=== PATIENT | female | born 1960 | race Caucasian/White ===

== ENCOUNTER 2020-02-10 11:41 | Outpatient (CLI) | payer OTHER, SELFPAY ==
--- NOTE | 2020-02-10 11:46 | MM_ITS ---
WS: [id number] Exam: [place] [id number] Date/Time of Exam: 02/10/2020 11:51 AM Reason For Exam: SCREENING VIEWS: MLO and CC views both breasts. Comparison made with prior exam of 11/25/2016. Findings: There was no sign of mass, architectural distortion or suspicious calcification in either breast. Sc attered fibroglandular densities MM/[place] [id number] Impression: BI-RADS: 2-Benign FOLLOW-UP: 1 Year Follow-up This mammogram was also analyzed by the Computer Aided Detection System R2 Imag [employer].
== END 2020-02-10 11:42 | disposition home or self-care (01) ==
LOC: RADSHAW 11:44
PROVIDERS: PCP Electrodiagnostic Medicine; Visit Provider Nurse Practitioner Women's Health
DX: Z12.31 Encounter for screening mammogram for malignant neoplasm of breast (principal)
CPT/HCPCS: 77067

== ENCOUNTER 2020-08-13 07:28 | Outpatient (RCR) | payer OTHER, SELFPAY | END 2020-08-20 23:59 | disposition home or self-care (01) | LOC: SOT 07:28 | PROVIDERS: PCP Electrodiagnostic Medicine; Referring Provider Orthopaedic Surgery; Visit Provider Orthopaedic Surgery | DX: S62.631D Displaced fracture of distal phalanx of left index finger, subsequent encounter for fracture with routine healing (principal); X58.XXXD Exposure to other specified factors, subsequent encounter | CPT/HCPCS: 97110; 97165 ==

== ENCOUNTER 2020-08-21 06:00 | Outpatient (RCR) | payer OTHER, SELFPAY | END 2020-09-19 23:59 | disposition home or self-care (01) | LOC: SOT 06:00 | PROVIDERS: PCP Electrodiagnostic Medicine; Referring Provider Orthopaedic Surgery; Visit Provider Orthopaedic Surgery | DX: S62.631A Displaced fracture of distal phalanx of left index finger, initial encounter for closed fracture (principal); X58.XXXA Exposure to other specified factors, initial encounter | CPT/HCPCS: 97110; 97112 ==

== ENCOUNTER 2020-09-20 06:00 | Outpatient (RCR) | payer OTHER, SELFPAY | END 2020-10-20 23:59 | disposition home or self-care (01) | LOC: SOT 06:00 | PROVIDERS: PCP Electrodiagnostic Medicine; Referring Provider Orthopaedic Surgery; Visit Provider Orthopaedic Surgery | DX: S62.631D Displaced fracture of distal phalanx of left index finger, subsequent encounter for fracture with routine healing (principal); X58.XXXD Exposure to other specified factors, subsequent encounter | CPT/HCPCS: 97110 ==

== ENCOUNTER 2021-02-11 07:54 | Outpatient (CLI) | payer OTHER, SELFPAY ==
--- NOTE | 2021-02-11 08:00 | MM_ITS ---
WS: [id number] BILATERAL DIGITAL SCREENING MAMMOGRAPHY WITH CAD CLINICAL INFORMATION: SCREENING HISTORY: Screening mammogram. No current complaints. COMPARISON: February 10, 2020 TECHNIQUE: Bilateral CC and MLO views. FINDINGS: Scattered fibroglandular densities bilaterally. Punctate and lucent centered calcifications. Biopsy m arker left breast. No suspicious focal mass, asymmetry, calcifications, or architectural distortion. No evidence of malignancy. MM/[place] [id number] IMPRESSION: BI-RADS: 2-Benign FOLLOW UP: 1 Year Follow-up Recommend return to annual screening mammography.
== END 2021-02-11 07:55 | disposition home or self-care (01) ==
LOC: RADSHAW 07:57
PROVIDERS: PCP Electrodiagnostic Medicine; Visit Provider Nurse Practitioner Women's Health
DX: Z12.31 Encounter for screening mammogram for malignant neoplasm of breast (principal)
CPT/HCPCS: 77067

== ENCOUNTER → 2021-05-14 15:25 | Outpatient (BNVA) | payer OTHER, SELFPAY | PROVIDERS: PCP Electrodiagnostic Medicine; Referring Provider Electrodiagnostic Medicine; Visit Provider Podiatrist Foot & Ankle Surgery | DX: M79.671 Pain in right foot (principal); M19.071 Primary osteoarthritis, right ankle and foot; M77.31 Calcaneal spur, right foot | CPT/HCPCS: 73630 ==

== ENCOUNTER 2021-12-04 07:08 | Outpatient (CLI) | payer OTHER, SELFPAY ==
--- NOTE | 2021-12-04 13:42 | PFTS_ITS ---
Date of Study:12/04/21 Date of Dictation: MECHANICS: Forced vital capacity (FVC) is normal. Forced expiratory volume in one second (FEV1) is normal. FEV1/FVC is normal. FLOW VOLUME LOOP: Normal. LUNG VOLUMES: Not measured DIFFUSING CAPACITY FOR CARBON MONOXIDE: Not measured. INTERPRETATION: The prebronchodilator spirometry is normal. MTDD
== END 2021-12-04 07:09 | disposition home or self-care (01) ==
LOC: RT 07:09
PROVIDERS: PCP Family Medicine; Visit Provider Family Medicine
DX: R06.02 Shortness of breath (principal)
CPT/HCPCS: 94010

== ENCOUNTER 2021-12-25 08:00 | Outpatient (CLI) | payer OTHER, SELFPAY | END 2021-12-25 08:01 | disposition home or self-care (01) | LOC: SLEEP 12-26 08:00 | PROVIDERS: PCP Family Medicine; Visit Provider Family Medicine | DX: G47.10 Hypersomnia, unspecified (principal) | CPT/HCPCS: G0399 ==

== ENCOUNTER → 2022-02-16 17:25 | Outpatient (BNVA) | payer OTHER, SELFPAY | PROVIDERS: PCP Family Medicine; Visit Provider Registered Nurse Neonatal Intensive Care | DX: R52 Pain, unspecified (principal) | CPT/HCPCS: 87400 ==

== ENCOUNTER 2022-02-26 07:33 | Outpatient (CLI) | payer OTHER, SELFPAY ==
--- NOTE | 2022-02-26 07:41 | MM_ITS ---
WS: [id number] BILATERAL SCREENING DIGITAL TOMOSYNTHESIS MAMMOGRAM WITH CAD HISTORY: SCREENING COMPARISON: 02/10/2020, 02/11/2021, 01/27/2019 and 11/26/2017 Bilateral CC and MLO views with tomosynthesis and synthetic mammography submitted. Computer aided det ection analyzed. Breast composition: There are scattered areas of fibroglandular density. No suspicious masses, microc alcifications or architectural distortion. Long-term stability ovoid mass in the mid RIGHT breast homero sures 17 x 11 mm. This mass has been present on prior studies. Better seen today due to tomosynthesis . Additional benign scattered calcifications. MM/[place] [id number] IMPRESSION: BI-RADS: 2-Benign FOLLOW UP: 1 Year Follow-up
== END 2022-02-26 07:34 | disposition home or self-care (01) ==
PROVIDERS: PCP Family Medicine; Visit Provider Family Medicine
DX: Z12.31 Encounter for screening mammogram for malignant neoplasm of breast (principal); Z01.419 Encounter for gynecological examination (general) (routine) without abnormal findings
CPT/HCPCS: 77063; 77067; 87624

== ENCOUNTER 2022-06-06 15:59 | Outpatient (CLI) | payer OTHER, SELFPAY ==
--- NOTE | 2022-06-06 16:19 | XR_ITS ---
WS: [id number] XR finger RT min 2V [id number] REASON FOR EXAM: Right middle finger pain FINDINGS: Moderate osteoarthritis with joint space narrowing and subchondral sclerosis is seen in the DIP and P IP joints of the right middle finger. No fracture or subluxation noted. No soft tissue abnormality. XR/XR finger RT min 2V [id number] IMPRESSION: No acute bone or joint abnormality. Osteoarthritis.
== END 2022-06-06 16:00 | disposition home or self-care (01) ==
PROVIDERS: PCP Family Medicine; Visit Provider Family Medicine
DX: M19.041 Primary osteoarthritis, right hand (principal)
CPT/HCPCS: 73140

== ENCOUNTER 2023-03-02 06:59 | Outpatient (CLI) | payer OTHER, SELFPAY ==
--- NOTE | 2023-03-02 07:45 | MM_ITS ---
WS: [id number] BILATERAL SCREENING DIGITAL TOMOSYNTHESIS MAMMOGRAM WITH CAD HISTORY: SCREEN COMPARISON: 02/26/2022, 02/11/2021 and 02/10/2020 Bilateral CC and MLO views with tomosynthesis and synthetic mammography submitted. Computer aided det ection analyzed. Breast composition: There are scattered areas of fibroglandular density. No suspicious masses, microc alcifications or architectural distortion. Benign calcifications in each breast. There is an asymmetr y in the superior lateral LEFT breast which has been present since 2020 with no increase in size. IMPRESSION: MM/[place] [id number] BI-RADS: 2-Benign FOLLOW UP: 1 Year Follow-up
== END 2023-03-02 07:00 | disposition home or self-care (01) ==
LOC: RAD 06:59
PROVIDERS: PCP Family Medicine; Visit Provider Nurse Practitioner Women's Health
DX: Z12.31 Encounter for screening mammogram for malignant neoplasm of breast (principal)
CPT/HCPCS: 77063; 77067

== ENCOUNTER → 2023-05-08 07:57 | Outpatient (BNVA) | payer OTHER, SELFPAY | PROVIDERS: PCP Family Medicine; Visit Provider Family Medicine | DX: Z13.1 Encounter for screening for diabetes mellitus (principal); Z13.220 Encounter for screening for lipoid disorders; Z51.81 Encounter for therapeutic drug level monitoring; R25.1 Tremor, unspecified; E55.9 Vitamin D deficiency, unspecified | CPT/HCPCS: 80053; 80061; 82306; 83036; 84439; 84443; 85025 ==

== ENCOUNTER 2023-08-14 07:15 | Day surgery (SDC) | payer OTHER, SELFPAY ==
[2023-08-14] VITALS (8 sets, daily range): BP systolic 103–152; BP diastolic 56–98; PULSE 65–87; RESP 12–18; TEMP 36.6–37.3; O2SAT 92–96
[2023-08-14] MEDS: sodium chloride 0.9% 1,000 ML 30 ML IV (07:45)
[2023-08-14] MEDS: gabapentin 300 mg Capsule PO (07:49)
[2023-08-14] MEDS: CELEcoxib 200 mg Capsule 400 MG PO (07:51)
--- NOTE | 2023-08-14 08:26 | W.PM.OPSUD ---
Surgery/Procedure H&P Update DATE OF PROCEDURE: August 14, 2023 DATE H&P PERFORMED: 08/14/23 H&P UPDATE INFORMATION: I have reviewed H&P completed within last 30 days, I have examined patient prior to procedure, No changes to prior documentation and [place] is [place] [facility] [place] indicated CHANGES TO PREVIOUS DOCUMENTATION: None PREOP DIAGNOSIS: Painful hardware right foot PLANNED PROCEDURE: Operation Date: 08/14/23 08:50 Proposed Procedures p Hardware Removal/Deep hardware removal right foot(Right) - Noah Melissa DPM
--- NOTE | 2023-08-14 08:27 | ANES.PREANE2 ---
Pre-Anesthetic Assessment Height/Weight: Height 1.68 m Weight 95.254 kg Temp Pulse Resp BP Pulse Ox O2 Del Method 99.1 F 87 18 152/98 96 Room Air 08/14/23 07:33 08/14/23 07:33 08/14/23 07:33 08/14/23 07:33 08/14/23 07:33 08/14/23 07:33 Preop Diagnosis: Painful hardware right foot Operation Date: 08/14/23 08:50 Proposed Procedures p Hardware Removal/Deep hardware removal right foot(Right) - Noah Melissa DPM Familial anesthetic complications: None Was Beta Jayden taken within 24 hours: N/A Was Clonidine taken within 24 hours: N/A Last intake: Intake Last Liquid Date 08/13/23 Last Liquid Time 19:30 Last Solid Date 08/13/23 Last Solid Time 18:00 Social No alcohol and No tobacco Exam alert, oriented x 3, clear to auscultation bilaterally and regular rate & rhythm Airway Mallampati: Class I Pulmonary Sleep Apnea CV/HEM Hypertension Anesthetic Plan ASA status: 2 Anesthesia: MAC Risk of > 500 ml blood loss (7ml/kg in children): No Medications/Allergies Home Medications Medication Instructions Recorded Confirmed Last Taken Type albuterol sulfate 90 mcg/actuation 1 puff inhalation QID #8.5 grams 10/17/21 08/13/23 Unknown Rx aerosol inhaler clobetasol 0.05 % topical ointment 1 applic topical DAILY PRN Rash 02/26/22 08/13/23 Unknown History cyclobenzaprine 10 mg tablet 10 mg PO TID PRN muscle spasm #30 01/06/23 08/13/23 Unknown Rx tabs ondansetron 4 mg disintegrating 4 mg PO Q8H PRN nausea and 01/06/23 08/13/23 Unknown Rx tablet vomiting #10 tabs amlodipine 2.5 mg tablet 7.5 mg (3 x 2.5 mg) PO DAILY #90 01/19/23 08/13/23 08/13/23 Rx tabs tretinoin 0.05 % topical cream 1 applic topical Q3D #20 grams 01/20/23 08/13/23 Unknown Rx hydrochlorothiazide 12.5 mg tablet 12.5 mg PO DAILY #90 tabs 12/04/23 05/23/24 05/24/24 Rx propranolol 10 mg tablet 10 mg PO TID #90 tabs 02/23/23 08/13/23 08/14/23 Rx ibuprofen 800 mg tablet 800 mg PO TID PRN pain #90 tabs 03/19/23 08/13/23 08/12/23 Rx albuterol sulfate 2.5 mg/3 mL 2.5 mg (3 mL) inhalation QID PRN 05/01/23 08/13/23 Unknown Rx (0.083 %) solution for nebulization shortness of breath or wheezing #75 mL cholecalciferol (vitamin D3) 50 50 mcg PO DAILY #30 caps 05/18/23 08/13/23 Unknown Rx mcg (2,000 unit) capsule Allergies Allergy/AdvReac Type Severity Reaction Status Date / Time No Known Allergies Allergy Verified 08/14/23 07:34 Current Medications Generic Name Dose Route Start Last Admin Trade Name Freq PRN Reason Stop Dose Admin Sodium Chloride 1,000 mls @ 30 mls/hr 08/14/23 07:45 08/14/23 07:45 Sodium Chloride 0.9% IV 08/15/23 07:44 30 mls/hr .Q24H ALBERTO Administration PFSH Anesthesia Medical History Hyperextension injury of finger of right hand Peripheral edema COVID-19 No pertinent past medical history neghx: dm,thyroid,dvt/pe PCP: David Hypertension Surgical History H/O breast biopsy (~2013) Atypical ductal hyperplasia of the left breast. Hx of section (~1986) Hx of dilation and curettage x4-- she had 3 D&Cs done for miscarriages and one done for postmenopausal bleeding in 2011. Per patient at time of D&C in 2011 no malignancy or hyperplasia was identified. Hx of tubal ligation (~1992) through abdomen Hx of tonsillectomy At age 8 History of bunionectomy Right Family History Sister Thyroid disease Mother Heart disease Hypertension Hypercholesteremia Dementia Denies family history of Colon cancer Ovarian cancer Diabetes Breast cancer Uterine cancer Stroke Data Anesthesia Cardiac Studies: No Data to Display
--- NOTE | 2023-08-14 08:28 | PM.OPSURHP ---
Providers/Chief Complaint Primary Care Provider: Jose Ramon Hernandez MD Chief Complaint: T84.84 History of Present Illness 62 year old female patient presenting to clinic for evaluation of painful callus at right lateral third toe. Patient reports third and fourth toes rubbing causing pain. Review of Systems General: Reports: 10 or more systems reviewed and unremarkable except in HPI and below Const: Denies: fever(s) or chills Eyes: Denies: change in vision Card: Denies: chest pain or palpitations Resp: Denies: dyspnea or productive cough GI: Denies: abdominal pain, nausea or vomiting : Denies: flank pain Musc: Reports: extremity pain, joint pain, joint stiffness, limited range of motion and deformity Skin/Breast: Reports: skin tenderness; Denies: rash Neuro: Reports: difficulty walking; Denies: numbness in extremities, sensory changes or frequent falls Psych: Denies: suicidal ideation Simeon/Lymph: Denies: easy bruising Medications/Allergies Home Medications Medication Instructions Recorded Confirmed Last Taken Type albuterol sulfate 90 mcg/actuation 1 puff inhalation QID #8.5 grams 10/17/21 08/13/23 Unknown Rx aerosol inhaler clobetasol 0.05 % topical ointment 1 applic topical DAILY PRN Rash 02/26/22 08/13/23 Unknown History cyclobenzaprine 10 mg tablet 10 mg PO TID PRN muscle spasm #30 01/06/23 08/13/23 Unknown Rx tabs ondansetron 4 mg disintegrating 4 mg PO Q8H PRN nausea and 01/06/23 08/13/23 Unknown Rx tablet vomiting #10 tabs amlodipine 2.5 mg tablet 7.5 mg (3 x 2.5 mg) PO DAILY #90 01/19/23 08/13/23 08/13/23 Rx tabs tretinoin 0.05 % topical cream 1 applic topical Q3D #20 grams 01/20/23 08/13/23 Unknown Rx hydrochlorothiazide 12.5 mg tablet 12.5 mg PO DAILY #90 tabs 02/23/23 08/13/23 08/14/23 Rx propranolol 10 mg tablet 10 mg PO TID #90 tabs 02/23/23 08/13/23 08/14/23 Rx ibuprofen 800 mg tablet 800 mg PO TID PRN pain #90 tabs 12/08/13/23 08/12/23 Rx albuterol sulfate 2.5 mg/3 mL 2.5 mg (3 mL) inhalation QID PRN 05/01/23 08/13/23 Unknown Rx (0.083 %) solution for nebulization shortness of breath or wheezing #75 mL cholecalciferol (vitamin D3) 50 50 mcg PO DAILY #30 caps 05/18/23 08/13/23 Unknown Rx mcg (2,000 unit) capsule Allergies Allergy/AdvReac Type Severity Reaction Status Date / Time No Known Allergies Allergy Verified 08/14/23 07:34 PFSH PFSH: Medical History Hyperextension injury of finger of right hand Peripheral edema COVID-19 No pertinent past medical history neghx: dm,thyroid,dvt/pe PCP: David Hypertension Surgical History H/O breast biopsy (~2013) Atypical ductal hyperplasia of the left breast. Hx of section (~1986) Hx of dilation and curettage x4-- she had 3 D&Cs done for miscarriages and one done for postmenopausal bleeding in 2011. Per patient at time of D&C in 2011 no malignancy or hyperplasia was identified. Hx of tubal ligation (~1992) through abdomen Hx of tonsillectomy At age 8 History of bunionectomy Right Family History Sister Thyroid disease Mother Heart disease Hypertension Hypercholesteremia Dementia Denies family history of Colon cancer Ovarian cancer Diabetes Breast cancer Uterine cancer Stroke Vital Signs Vitals Signs: Last Vital Signs Temp 99.1 F 08/14/23 07:33 Pulse 87 08/14/23 07:33 Resp 18 08/14/23 07:33 BP 152/98 08/14/23 07:33 Pulse Ox 96 08/14/23 07:33 O2 Del Method Room Air 08/14/23 07:33 Weight: Weight last 48 hrs Weight 210 lb Physical Exam Narrative: EXAM NARRATIVE: GENERAL: Patient is alert and oriented ?3 and in no acute distress. The following is a focused bilateral lower extremity exam. VASCULAR: Dorsalis pedis and posterior tibial arteries palpable +2. Capillary refill time less than 3 seconds to the distal hallux bilaterally. Calf is supple and nontender proximally and distally. No pedal edema appreciated. Pedal hair growth present. NEUROLOGICAL: Epicritic and protopathic sensations grossly intact to the lower extremities. +2 Achilles tendon reflex noted bilaterally. Negative Tinel sign upon percussion of lower extremity nerves. DERMATOLOGICAL: Hyperkeratotic lesion lateral border right third toe without wound, drainage or erythema. MUSCULOSKELETAL: Pain to palpation at hyperkeratotic lesion right third toe. Prominent hardware at the right first metatarsal with tenderness to palpation. Mild tenderness at the right Achilles myotendinous juncture. No palpable dell along the course of the watershed zone. Muscle strength up to 5 in all 3 planes to the bilateral foot and ankle. Joint dorsiflexion 5 degrees beyond neutral. Arthrosis at the tarsometatarsal joints with osteophytes palpable dorsally. CARDIOVASCULAR: S1, S2, normal rate, normal rhythm. Dorsalis pedis and posterior tibial arteries palpable. LUNGS: Clear to auscltation, no use of acessory muscles, no crackles or wheezes. A&P Assessment and plan (1) Painful orthopaedic hardware: (2) Right foot pain: Plan Ms. Cotton is a 62-year-old female presents with complaints of painful hardware that is backing out she has a screw tenting the skin is having complications wearing shoe gear with rubbing against hardware causing pain. Has tried padding and offloading and accommodative shoes without relief. I reviewed at length with the patient, the risks, potential complications, benefits, alternatives, expectations, and typical outcomes associated with the surgery. The risks and potential complications were explained in detail, including but not limited to infection, wound dehiscence or soft tissue complications, bleeding and hematoma, chronic edema, neuritis or nerve damage producing numbness or chronic pain, CRPS, failure to relieve pain or worsening pain, thick / painful / unsightly scar, limited motion / stiffness, malposition, delayed union, malunion, or nonunion, fracture, reaction to implants, anesthetic complications, venous thromboembolism, and deformity recurrence. I discussed the notion of no regrets with the patient as it pertains to complications and outcomes. The patient seemed to understand the nature of the proposed care and required convalescence. They asked appropriate questions, answered to their satisfaction. They are aware no guarantees can be made as to a satisfactory outcome and they understand there may be other possible unforeseen complications or outcomes not listed here that will be treated accordingly if they arise. There were no written or implied guarantees given to the patient. They gave informed consent to proceed. Plan on deep hardware removal right foot, outpatient local MAC anesthesia duration procedure 30 minutes. Coding Level of Care Code Acute Code for [facility] Fwd Diagnoses Painful orthopaedic hardware T84.84XA Right foot pain M79.671
[2023-08-14] MEDS: ceFAZolin 2,000 MG in sodium chloride 0.9% (plus) 50 ML 100 MG IV (08:30)
[2023-08-14] MEDS: BUPivacaine 0.5% INJ 30 mL INJECTION (08:55)
[2023-08-14] MEDS: BUPivacaine liposome 13.3 mg/mL SDV 10 mL 133 MG INFILTRATI (08:55)
--- NOTE | 2023-08-14 09:01 | W.PM.BPON ---
Normal alignment of date of Procedure: 06/05/23 Surgeon: Noah Melissa DPM Infantry Weapons Crewmember(s): Charla Procedure(s) performed: Deep hardware removal right foot Findings of the procedure(s): 1 screw was broke this was prior to hard removal at today's visit. Estimated blood loss: Less than 2 mL Specimen(s) removed: 3 entire screws, half of the screw and 1 plate Post-operative diagnosis: Painful hardware right foot No anesthesia or surgical complications
--- NOTE | 2023-08-14 10:20 | ANE.PACU2 ---
Inpatient post-anesthesia follow up: Airway intact: Yes Vital signs: Temperature 98.2 F Pulse Rate 68 Respiratory Rate 18 Blood Pressure 116/68 Pulse Oximetry 94 Oxygen Delivery Me thod Room Air Oxygen Flow Rate 6 Fraction of Inspir ed Oxygen Hydration adequate: Yes Nausea and vomiting: No Pain level: 1 Mental status: Baseline
--- NOTE | 2023-08-14 11:46 | PM.OP ---
Operative Report Date of procedure: August 14, 2023 Pre-op diagnosis: Painful hardware, right foot. Post-op diagnosis: Painful hardware, right foot. Post-op findings: Failed hardware right foot Procedure done: Deep hardware removal right foot. CPT code 88115 Implants: 3-0 Vicryl, 4-0 Vicryl, 4-0 nylon Specimens removed/disposition: 4 screws 1 plate. Of note 1 screw had failed at the shank and only partial extraction was performed of the head and proximal shape. Pathology: None Surgeon: Noah Melissa DPM Biological Technical Officer: See intraoperative documentation Estimated blood loss: 2 mL see intraoperative documentation IV fluids: See intraoperative documentation Urine output: None Complications: No complications Brief History: Patient is a pleasant 63-year-old female with prominent painful hardware at the right foot feels that the screw is backing out and makes it difficult to wear any type of shoe gear, has tried padding and spacing and accommodative shoes continues to have irritation would like to have it removed. I reviewed at length with the patient, the risks, potential complications, benefits, alternatives, expectations, and typical outcomes associated with the surgery. The risks and potential complications were explained in detail, including but not limited to infection, wound dehiscence or soft tissue complications, bleeding and hematoma, chronic edema, neuritis or nerve damage producing numbness or chronic pain, CRPS, failure to relieve pain or worsening pain, thick / painful / unsightly scar, limited motion / stiffness, malposition, delayed union, malunion, or nonunion, fracture, reaction to implants, anesthetic complications, venous thromboembolism, and deformity recurrence. I discussed the notion of no regrets with the patient as it pertains to complications and outcomes. The patient seemed to understand the nature of the proposed care and required convalescence. They asked appropriate questions, answered to their satisfaction. They are aware no guarantees can be made as to a satisfactory outcome and they understand there may be other possible unforeseen complications or outcomes not listed here that will be treated accordingly if they arise. There were no written or implied guarantees given to the patient. They gave informed consent to proceed. Procedure: Under mild sedation the patient was brought to the operating room and remained on the gurney in supine position. Timeout was performed. Anesthesia was then administered by the anesthesia service. Local anesthesia was injected by myself. Well-padded pneumatic tourniquet was applied to the right ankle. Right lower extremity was scrubbed, prepped and draped utilizing normal aseptic technique. Right foot then exanguinated with Esmarch bandage and tourniquet inflated to 250 mmHg. Attention was directed to the medial aspect of right forefoot where directly over hardware which was palpable and tenting the skin a incision was made through skin with a #15 blade with dissection carried down to hardware. 1 screw was prominent and palpable which was tenting the skin, remaining screws were down to bone with plate. 1 screw head failure at the shank and was partially extracted with the proximal shank and head passing operative field and remaining 3 screws removed in total and passed from operative field followed by the plate pass from operative field. All rough edges were smoothed at the level of the bone and the incision was irrigated with copious amounts of sterile skin solution. Incision was closed in a layered fashion with periosteum and deep tissue reapproximated with 3-0 Vicryl, subcutaneous tissue with 4-0 Vicryl and skin with 4-0 nylon. Incision was dressed with Adaptic, sterile 4 x 4's, Kerlix and Ra wrap. Postop shoe was applied to the right foot. Tourniquet was deflated and a prompt hyperemic response is noted to the distal digits of the right foot. Patient tolerated the procedure and anesthesia well and was transferred to the PACU with vital signs stable vascular status intact. Following a period of postoperative monitoring she will be discharged home without home care instructions and scheduled follow-up.
== END 2023-08-14 10:19 | disposition home or self-care (01) ==
PROVIDERS: PCP Family Medicine; Visit Provider Podiatrist Foot & Ankle Surgery
PROC: (CPT 20680; principal; 2023-08-14 08:40)
DX: T84.84XA Pain due to internal orthopedic prosthetic devices, implants and grafts, initial encounter (principal); I10 Essential (primary) hypertension; G47.30 Sleep apnea, unspecified; Y82.9 Unspecified medical devices associated with adverse incidents
CPT/HCPCS: 20680; C9290; J0690; J2704; J3010; J3490; J7030

== ENCOUNTER → 2023-11-10 08:41 | Outpatient (BNVA) | payer OTHER, SELFPAY | PROVIDERS: PCP Family Medicine; Referring Provider Family Medicine; Visit Provider Psychiatry & Neurology Neurology | DX: R25.1 Tremor, unspecified (principal) | CPT/HCPCS: 36415; 82607; 82746; 83090; 83735; 83921 ==

== ENCOUNTER 2023-12-16 07:06 | Outpatient (CLI) | payer OTHER, SELFPAY ==
--- NOTE | 2023-12-16 07:15 | MR_ITS ---
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 COMPARISON: None available. TECHNIQUE: Multiplanar imaging performed through the brain with MultiHance 20 ml's IV. No acute infarcts are seen. Ratliff-white matter differentiation is well preserved. Mild small vessel di sease. There is only a few scattered T2 and FLAIR signal hyperintensities greater on the LEFT. Normal hippocampal formations. No susceptibility artifacts or prior lacunar infarcts. Ventricles and extra-axial spaces are normal. Clivus and pituitary gland are normal. Visualized posterior fossa and brainstem are also normal. Postcontrast images are negative for masses or vascular malformations. Dural venous sinuses are normal. Paranasal sinuses: Well aerated with no significant disease. Mastoid air cells: Normal. Calvarium and scalp: Normal. MR/MR head wo/w con [id number] IMPRESSION: 1. No acute infarct or hemorrhage. 2. Very minimal small vessel disease, greatest on the LEFT. 3. No enhancing mass. No volume loss.
[2023-12-16] MEDS: gadobenate dimeglumine 20 mL vial IV (07:40)
== END 2023-12-16 07:07 | disposition home or self-care (01) ==
LOC: RAD 07:06
PROVIDERS: PCP Family Medicine; Visit Provider Psychiatry & Neurology Neurology
DX: H02.5 Other disorders affecting eyelid function (principal); R25.1 Tremor, unspecified
CPT/HCPCS: 36415; 70553; 82607; 82746; 83090; 83735; 83921

== ENCOUNTER 2024-03-07 07:46 | Outpatient (CLI) | payer OTHER, SELFPAY ==
--- NOTE | 2024-03-07 07:49 | MM_ITS ---
WS: [id number] BILATERAL SCREENING DIGITAL TOMOSYNTHESIS MAMMOGRAM WITH CAD HISTORY: SCREENING COMPARISON: 03/02/2023, 02/26/2022, 02/10/2020 Bilateral CC and MLO views with tomosynthesis and synthetic mammography submitted. Computer aided det ection analyzed. Breast composition: There are scattered areas of fibroglandular density. No suspicious masses, microc alcifications or architectural distortion. Numerous benign scattered calcifications. MM/MM scr tomosynthesis [id number] IMPRESSION: BI-RADS: 2 - Benign. FOLLOW UP: 1 Year Follow-up
== END 2024-03-07 07:47 | disposition home or self-care (01) ==
PROVIDERS: PCP Family Medicine; Visit Provider Nurse Practitioner Women's Health
DX: Z12.31 Encounter for screening mammogram for malignant neoplasm of breast (principal); R92.323 Mammographic fibroglandular density, bilateral breasts; R92.1 Mammographic calcification found on diagnostic imaging of breast
CPT/HCPCS: 77063; 77067

== ENCOUNTER → 2024-07-12 14:15 | Outpatient (BNVA) | payer OTHER, SELFPAY | PROVIDERS: PCP Family Medicine; Visit Provider Psychiatry & Neurology Neurology | DX: G25.0 Essential tremor (principal); E55.9 Vitamin D deficiency, unspecified | CPT/HCPCS: 36415; 82306; 83540; 83735; 84443 ==

== ENCOUNTER 2024-08-03 06:59 | Outpatient (CLI) | payer OTHER, SELFPAY ==
--- NOTE | 2024-08-03 07:15 | MR_ITS ---
WS: [id number] MRI CERVICAL SPINE NONCONTRAST TECHNIQUE: Sagittal T1, T2 and STIR imaging. Axial T2, gradient, and fiesta imaging. CLINICAL INFORMATION: G24.3 - Spasmodic torticollis COMPARISON: None. FINDINGS: Straightening of the normal cervical lordosis. Slight anterolisthesis C4 on C5. No abnormal gadolinium enhancement. Cord signal is normal. No suspicious lesions in the cervical cord. C2-C3: Mild LEFT and no RIGHT foraminal narrowing. Mild facet arthropathy. C3-C4: Mild facet arthropathy. Mild LEFT and no significant RIGHT foraminal narrowing. C4-C5: Slight anterolisthesis. Moderate facet arthropathy. Spinal canal is patent. Mild LEFT foraminal narrowing. C5-C6: Slight anterolisthesis. Mild facet arthropathy. Mild LEFT and no significant RIGHT foraminal narrowing. C6-C7: Disc osteophyte complex with endplate ridging. Mild facet arthropathy. Mild LEFT and no significant RIGHT foraminal narrowing. Spinal canal is patent. C7-T1: Slight anterolisthesis. Spinal canal and foramina are patent. Visualized brain stem structures: Normal. Prevertebral soft tissues: Normal. MR/MR cervical spine wo/w [id number] IMPRESSION: 1. No suspicious lesions in the cervical cord. No enhancing lesions. 2. Mild spondylitic changes described above. 3. Slight anterolisthesis C4 on C5, C5 on C6, C6 on C7, and C7 on T1. 4. LEFT C4-5 facet synovitis with a small amount of enhancement and edema like ly inflammatory or degenerative. 5. Mild LEFT C4-5 foraminal narrowing.
[2024-08-03] MEDS: gadobenate dimeglumine 20 mL vial IV (07:52)
== END 2024-08-03 07:00 | disposition home or self-care (01) ==
PROVIDERS: PCP Family Medicine; Visit Provider Psychiatry & Neurology Neurology
DX: G24.3 Spasmodic torticollis (principal); M47.892 Other spondylosis, cervical region; M65.88 Other synovitis and tenosynovitis, other site; M48.02 Spinal stenosis, cervical region; R93.7 Abnormal findings on diagnostic imaging of other parts of musculoskeletal system; M25.78 Osteophyte, vertebrae
CPT/HCPCS: 72156

== ENCOUNTER 2024-10-07 06:37 | Outpatient (CLI) | payer OTHER, SELFPAY ==
--- NOTE | 2024-10-07 | ECG_ITS ---
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 Interpretive Statements LEXISCAN SESTAMIBI STRESS TEST Procedure: At the baseline, the blood pressure was 150/85 mmHg with a heart rate of 77 bpm. The electrocardiogram showed normal sinus rhythm, normal axis with normal ST and T's. The Lexiscan was infused over a period of 20 seconds. A total of 0.4 mg of Lexiscan was infused. The stress phase was continued for a total of 5 minutes. Heart rate was at the end of stress phase was 90 bpm and a blood pressure of 147/66 mmHg. The EKG at the peak infusion revealed normal sinus rhythm with no significant ST-T wave changes. Sestamibi was injected 20 seconds after the Lexiscan infusion. Blood pressure at the end of recovery phase was 149/69 mmHg with a heart rate of 85 bpm. Conclusion: 1. Normal EKG response to Lexiscan infusion 2. No Lexiscan induced chest pain or cardiac arrhythmia. 3. Normal blood pressure and heart rate response. 4. Sestamibi/sestamibi perfusion scan pending; see separate report. Electronically Signed On 10-17-2024 11:58:28 CDT by Carson Candelario M.D. [email or web address]
[2024-10-07 06:45] VITALS: BMI 36.3
--- NOTE | 2024-10-07 06:49 | NMCV_ITS ---
NM yolanda perf SPECT r/s* [id number] Cher Cotton Age: 64 Gender: F : 1960 Exam Date: 10/07/2024 07:48 Ordering Phys: Jose Ramon Hernandez MD Technologist: TRENA Cummins Exam Location: [facility] Indications: cp STRESS TEST Please see separate stress test report in [facility] for full findings IMAGE PROTOCOL Rest/Stress 1 Lexiscan Day Radiopharmaceutical Dose (mCi) Administration Site Administered by Rest: Tc-99m 10.7 IV Palak Olmedo, FOOD PHOTOGRAPHER Sestamibi Stress:Tc-99m 32.5 IV Palak Olmedo, FOOD PHOTOGRAPHER Sestamibi Rest: 07-Oct-2024 60 Discovery 630 Stress: 07-Oct-2024 30 Discovery 630 0.4mg Lexiscan. Images obtained in supine and prone position. SPECT RESULTS Technical Quality: Good Raw Data Analysis: Normal Image Corrections: No attenuation or motion correction applied Summed Stress Score: 2 Summed Rest Score: 0 Summed Difference Score: 2 PERFUSION FINDINGS There is a small sized area of mild intensity reversible perfusion defect seen in the inferolateral wall. This is consistent with a small area of ischemia in left circumflex artery territory. FUNCTIONAL RESULTS (calculated via Gated SPECT) Stress Image LV EF (%): 89 Stress EDV (mL):89 TID: 0.98 Stress ESV (mL):10 FUNCTIONAL FINDINGS: There is normal left ventricular systolic function. IMPRESSIONS 1. Small area of ischemia seen in the left circumflex artery territory. 2. LV systolic function is normal Carson Candelario MD (Electronically Signed) Final Date: 07 October 2024 11:15 S
[2024-10-07 08:38] VITALS: BP 149/86; PULSE 78
== END 2024-10-07 06:38 | disposition home or self-care (01) ==
LOC: CDL 06:39
PROVIDERS: PCP Family Medicine; Visit Provider Family Medicine
DX: R07.9 Chest pain, unspecified (principal); R93.1 Abnormal findings on diagnostic imaging of heart and coronary circulation
CPT/HCPCS: 36415; 78452; 93017; 96374; A9500; J2785

== ENCOUNTER → 2024-10-24 15:26 | Outpatient (BNVA) | payer OTHER, SELFPAY | PROVIDERS: PCP Family Medicine; Referring Provider Family Medicine; Visit Provider Internal Medicine Cardiovascular Disease | DX: R07.9 Chest pain, unspecified (principal); R06.02 Shortness of breath; R58 Hemorrhage, not elsewhere classified; R94.39 Abnormal result of other cardiovascular function study | CPT/HCPCS: 36415; 80048; 85025; 85610; 93005 ==

== ENCOUNTER 2024-11-07 07:21 | Outpatient (CLI) | payer OTHER, SELFPAY ==
[2024-11-07] VITALS (16 sets, daily range): BP systolic 118–177; BP diastolic 69–90; PULSE 66–90; RESP 16–97; TEMP 36.9; O2SAT 96–98; BMI 36.3
--- NOTE | 2024-11-07 07:30 | XACV_ITS ---
Ht: 168 cm Wt: 102 kg BSA: 2.22 m2 Gender: Female : 1960 Any Known Allergies: No known allergies Exam Priority: Routine Indication(s): - Abnormal nuclear perfusion test Procedure(s): Procedure Description: Diagnostic procedure Procedure Description: PCI procedure Procedure Description: Left Heart Catheterization Procedure Description: Left ventriculography Procedure Description: Drug Eluting Coronary Stent Procedure Description: PTCA Procedure Description: Miscellaneous Procedure Description: ACT Procedure Description: Coronary Angiography Procedure Description: Pressure Wire Juan RIVAS; Diagnostic Cath Status: Elective Diagnostic Findings * Left Main has no disease. * Right Coronary Artery has no disease. * Mid Left Anterior Descending: minimal 30% stenosis, ABIGAIL: 3 flow. * Mid Circumflex: significant 80% stenosis, ABIGAIL: 3 flow. * 1st Diagonal: minimal 30% stenosis, ABIGAIL: 3 flow. * First Obtuse Marginal Branch Segment: luminal irregularities 20% stenosis, ABIGAIL: 3 flow. * Coronary angiography shows right dominance. Interventional Findings * Mid Circumflex: 80% stenosis treated with a AB MINI TREK 2.00X20 RX BALLOON, MAURICE Hanson LIZET 3.0X26 PARAM, and MAURICE MYERS EUPHORA RX [id number] BALLOON. 0% residual stenosis, ABIGAIL: 3 flow. Conclusions 1. There is significant coronary artery disease with two vessel disease. 2. All flores are normal. 3. Normal left ventricular systolic function. Ejection fraction of 65%. 4. Mid Circumflex was treated with a Balloon, Drug Eluting Stent, and Balloon. Recommendations * 1-Return to inpatient for close monitoring and routine cath care 2-Risk factor modification for secondary prevention 3-Statin and aspirin 81 mg life-long, if tolerated 4-Patient was pre-loaded with 600 mg of Plavix, continue Plavix 75mg p.o. daily for at least one year. We will assess at the end of one year again to continue if further or not 5-Continue optimal medical management 6-Follow up with Dr. Martinez in four weeks and your primary care in 10 days. Diagnostic RX Recommendation: PCI w/o planned CABG LV EDP: 25 mmHg Ventriculography Ejection Fraction: 65.0 % Pressures Phase:Rest AO : 147 / 83 ( 110 ) @ 10:24:00 AM 153 / 83 ( 115 ) @ 10:37:00 AM 124 / 69 ( 93 ) @ 10:41:00 AM 157 / 84 ( 117 ) @ 11:02:00 AM 157 / 83 ( 117 ) @ 11:02:00 AM LV : 153 / 2 / 25 @ 11:01:00 AM 107 / 34 / 32 @ 11:02:00 AM 149 / 0 / 24 @ 11:02:00 AM 155 / 0 / 25 @ 11:02:00 AM Valves Phase:DefaultPhase AV : 0.0 @ 10:10:23 AM 0.0 @ 10:10:23 AM AV Mean Gradient: 0.0 @ 10:10:23 AM Clinical Evaluation EBL: 5mL-10mL Procedural Details Procedure Consent Obtained. Admit Source: Out Patient. Pre-Procedure Time Out. Identified patient by full name and date of as verbalized by the patient/guarantor. Does the consent match the physician's order: Yes. Accurate & Complete Informed Consent: Yes. Inpatient/Outpatient History & Physical on Chart: Yes. If H&P is completed, is and addenduem needed: No; If yes, is the addendum complete: N/A. Visualize and Verify Site with Patient/Guarantor: N/A. Relevant Radiology Images available: N/A. The risks, benefits, and alternatives of sedation and/or procedure were discussed by physician. The patient agrees to continue. Procedure started. [facility] Clinical Fraility Score: 3: Managing Well. 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 Chest Pain Symptom Assessment: Typical Angina Symptoms. Cardiovascular Instability: No. Physician arrived. Correct patient, site and procedure confirmed by cath team. Current diagnosis: Chest Pain; Abnormal Stress Test. PERRLA. Strong, equal hand sealer operator bilaterally. Lungs clear x 5 lobes. IV Site on Arrival: 20 gauge in the right anticubital. IV Fluids: 0.9% NaCl at KVO. 0 mL infused prior to ear mold laboratory technician. Pre Procedural Pulses: bilateral posterior tibial was 1+. Pre Procedural Pulses: bilateral dorsalis pedis was 1+. Pre Procedural Pulses: bilateral radial was 3+. Oxygen started at 3liters/min via nasal canula. right groin was prepped with chloroprep then draped in the usual sterile fashion. right radial was prepped with chloroprep then draped in the usual sterile fashion. Physician notified. Baseline sample Acquired. HR: 68 BPM. Family updated by MD prior to the start of the procedure. Physician scrubbed in. Immediate Pre-Procedure Time Out. Correct Patient: Yes; Correct Procedure: Yes; Correct Site: Yes; Correct Patient Position: Yes; Correct Supplies: Yes; Dried Flammable Prep: Yes; Blood Products Available: N/A;. Lidocaine 1% infiltrated to the right radial. Arterial access obtained. A 5 british Christiano catheter in over wire. Multiple views taken of right coronary artery. Catheter redirected to the LCA. Multiple views taken of left coronary artery. Catheter removed over the exchange wire. 6 british XB 3.5 guide catheter was inserted over the wire. ACT drawn. Results 200 seconds. Therapeutic limits - pre-heparin administration 90-150 seconds and monitoring heparin during a vascular procedure >250 seconds. Family updated by staff. Unable to seat guide. Removed over the exchange wire. 6 british XB 3 guide catheter was inserted over the wire. Guide seated in the LCS. Runthrough guidewire was advanced through the guide catheter to lesion in the mid Circ. Guidewire advanced across lesion. Inflation number : 1 A AB MINI TREK 2.00X20 RX BALLOON was prepped and advanced across the Mid CX , then inflated to 14 REBEKA for 0:15 seconds. Inflation number: 2 The AB MINI TREK 2.00X20 RX BALLOON was reinflated across the Mid CX, to 14 REBEKA for 0:12 seconds. Balloon out. Results checked. Inflation Number : 3 A MDT R LIZET 3.0X26 PARAM -Lot Number# [id number] EXP 06/20/27 was prepped and advanced across the Mid CX. The stent was deployed at 12 REBEKA for 0:15 seconds. Stent balloon out over wire. Results checked. Inflation number : 4 A MDT NC EUPHORA RX [id number] BALLOON was prepped and advanced across the Mid CX , then inflated to 10 REBEKA for 0:15 seconds. Inflation number: 5 The MDT NC EUPHORA RX [id number] BALLOON was reinflated across the Mid CX, to 10 REBEKA for 0:17 seconds. Inflation number: 6 The MDT NC EUPHORA RX 3.86L59LA BALLOON was reinflated across the Mid CX, to 10 REBEKA for 0:19 seconds. Balloon out. Results checked. Wire out. Guide catheter out over wire. ACT drawn. Results 382 seconds. Therapeutic limits - pre-heparin administration 90-150 seconds and monitoring heparin during a vascular procedure >250 seconds. A 5 british Angled Pig catheter in over wire. EDP Sample taken: LV 153/2,25; HR: 68 BPM; SpO2: Off%. LV gram performed in HENLEY @ 10 mL/second for a total of 30 mL. Patient EF: Normal. EDP Sample taken: LV 107/34,32; HR: 67 BPM; SpO2: 96%. EDP Sample taken: LV 149/0,24; HR: 69 BPM; SpO2: 97%. Pullback taken: LV 155/0,25; AO 157/84(117); Mean: 0mmHg, Peak to Peak: 0mmHg, SEP: 7sec/min; HR: 71 BPM; SpO2: 96%. [id number]. Total IV fluids: 80 mL. Catheter removed over the wire. Physician review of films then scrubbed out. A TR Band was successful obtaining hemostatsis at the Right Radial artery insertion site. TR band placed. Hemostasis obtained. Post Procedure: Pulses reassessed and unchanged. PERRLA. Strong, equal hand sealer operator bilaterally. No VTE prophylaxis required. Medication's Wasted: Lidocaine 1% = 18ml , Nitro = 49.8 mg , Heparin = 2000 units. Fluoro: 11:01. Contrast type used: Visipaque 320 mgI/mL, 200 mL bottle. Post-op diagnosis: Mid circumflex lesion; status post 1 drug eluting stent. Complications: None. Estimated blood loss: 5mL-10mL. Responsiveness - Normal response to verbal stimuli; alert and oriented, PERRLA. Airway - Unaffected, no intervention required; spontaneous ventilation. Circulation: W/N/L, pulses unchanged. Nausea/Vomiting: No. Procedure completed. Patient transferred by wheelchair to CPRU. Vital chart was stopped. Access Site Site: Right Radial artery Sheath Size: 6 Fr Hemostasis Method: TR Band Hemostasis Success: Successful Procedure Medications Start: 9:04 AM Stop: 9:04 AM Medication: Versed Amount: 1 mg Route: I.V. Start: 9:04 AM Stop: 9:04 AM Medication: Fentanyl Amount: 50 mcg Route: I.V. Start: 9:21 AM Stop: 9:21 AM Medication: Nitrogylcerin Amount: 200 mcg Route: I.A. Start: 9:21 AM Stop: 9:21 AM Medication: Heparin Amount: 5000 units Route: I.V. Start: 9:32 AM Stop: 9:32 AM Medication: Versed Amount: 1 mg Route: I.V. Start: 9:40 AM Stop: 9:40 AM Medication: Heparin Amount: 4000 units Route: I.V. Start: 9:42 AM Stop: 9:42 AM Medication: Fentanyl Amount: 25 mcg Route: I.V. Start: 9:51 AM Stop: 9:51 AM Medication: Fentanyl Amount: 25 mcg Route: I.V. Start: 10:04 AM Stop: 10:04 AM Medication: Plavix Amount: 600 mg Route: P.O. I, the attending physician, have reviewed and verified all procedure medications. Yes, all medications given per verbal order History/Risk Factors Hypertension: Yes Dyslipidemia: No Peripheral Arterial Disease (PAD): No Myocardial Infarction (MO): No Obesity: Yes Renal Disease: No Tobacco Use: Never Prior Interventions PCI: No CABG: No Valve Surgery: No Report Signatures Finalized by Prema Martinez MD on 11/07/2024 10:31 AM
--- NOTE | 2024-11-07 09:04 | W.PM.OPSUD ---
Surgery/Procedure H&P Update DATE OF PROCEDURE: November 07, 2024 DATE H&P PERFORMED: 10/24/24 H&P UPDATE INFORMATION: I have reviewed H&P completed within last 30 days, I have examined patient prior to procedure and No changes to prior documentation PREOP DIAGNOSIS: Chest pain/unexplained shortness of breath/abnormal stress test PRIMARY INDICATION FOR PROCEDURE: 64-year female with unexplained shortness of breath recurrent chest pressure squeeze tightness underwent stress test, Dr. Corona thought that it is cardiac related she referred patient for left heart catheterization since patient continues to have recurrent symptoms. PLANNED PROCEDURE: Operation Date: 11/07/24 08:30 Proposed Procedures p Cardiac Catheterization - LHC w/w/o LV and Coros(Left) - Prema Martinez MD PATIENT REASSESSED PRIOR TO SEDATION, WITH NO CHANGE NOTED: Yes PHYSICAL EXAM: alert, oriented x 3, clear to auscultation bilaterally, regular rate & rhythm and operative site marked AIRWAY EVAL/ANESTHESIA PLAN: ASA II, Risks, benefits & alternatives of sedation and/or procedure discussed and Patient agrees to continue as planned ADDITIONAL INFORMATION: Patient has been explained all risk-benefit and alternative for the procedure, patient is sub-2% risk of stroke major bleed. Patient does have 5% risk of minor bleeding bruising infection hematoma vascular and CT surgery. Patient would like to proceed with it after understanding.
--- NOTE | 2024-11-07 10:15 | PC.NURSE ---
Received the patient back from the sugar laboratory assistant via wheelchair s/p PCI of the mid CX. Patient ambulated to the cot without difficulty. A & 0 x 3. telemetry monitor placed and vital signs obtained. TR band intact to the right wrist. No bleeding or hematoma noted. Palpable radial pulse. No other assessment changes noted from pre cath assessment. Spouse at bedside. No concerns voiced at this time.
--- NOTE | 2024-11-07 11:45 | PC.NURSE ---
Letting the air out of the TR band per protocol. No other assessment changes noted at this time.
--- NOTE | 2024-11-07 12:45 | PC.NURSE ---
TR band off per protocol. Site cleansed with warm water and patted dry. A large band aid was applied to the site and loosely secured with coban. No bleeding or hematoma noted. Palpable radial pulse. Post radial activity instruction verbally given to the patient with her understanding verbalized. No other assessment changes noted at this time.
--- NOTE | 2024-11-07 14:04 | PC.NURSE ---
Patient discharged home via wheelchair with spouse.
== END 2024-11-07 07:22 | disposition home or self-care (01) ==
PROVIDERS: PCP Family Medicine; Visit Provider Internal Medicine Cardiovascular Disease
DX: I25.10 Atherosclerotic heart disease of native coronary artery without angina pectoris (principal); I10 Essential (primary) hypertension; E66.9 Obesity, unspecified; Z68.36 Body mass index [BMI] 36.0-36.9, adult; I70.90 Unspecified atherosclerosis; Z82.49 Family history of ischemic heart disease and other diseases of the circulatory system; R01.1 Cardiac murmur, unspecified
CPT/HCPCS: 36415; 85347; 93458; 99152; 99153; C1725; C1769; C1874; C1887; C1894; C9600; J1644; J2250; J3010; J3490; J7030; J9999; Q0163; Q9967

== ENCOUNTER 2024-11-23 05:59 | Outpatient (CLI) | payer OTHER, SELFPAY ==
--- NOTE | 2024-11-23 06:15 | USCV_ITS ---
Cher Cotton Age: 64 Gender: F : 1960 Exam Date: 11/23/2024 06:25 Ordering Phys: Josué Corona MD ([email or web address]) Technologist: [place] [facility] [place]: cp sob BP: 120 / 70 HR: 104 Rhythm: Sinus Technical Quality: Adequate MEASUREMENTS (Male / Female) Normal Values 2D ECHO LV Diastolic Diameter PLAX 3.8 cm 4.2 - 5.9 / 3.9 - 5.3 cm IVS Diastolic Thickness 1.2 cm 0.6 - 1.0 / 0.6 - 0.9 cm IVS Systolic Thickness 1.8 cm LVPW Diastolic Thickness 1.1 cm 0.6 - 1.0 / 0.6 - 0.9 cm LVPW Systolic Thickness 1.3 cm LVOT Diameter 2.0 cm LV Ejection Fraction 2D Teich 63.6 % LV Ejection Fraction MOD 4C 64.8 % LV Ejection Fraction MOD 2C 57.6 % LV Ejection Fraction 2C AL 57.7 % LA Diameter 3.6 cm RA Systolic Volume 4C AL 29.3 ml RA Systolic Volume 4C MOD 28.2 ml LA Sys Volume AL 54.0 cm cubed LA Sys Volume Index AL 25.0 cm cubed/m squared Aorta at Sinotubular Diameter 2.6 cm IVC Diameter 2.3 cm M-MODE LA Ao Ratio MM 1.1 AV Cusp Separation MM 1.9 cm DOPPLER AV Peak Velocity 180.0 cm/s LVOT Peak Velocity 140.0 cm/s AV Area Cont Eq vti 2.4 cm squared AV Area Cont Eq pk 2.5 cm squared MV Peak Velocity 126.0 cm/s MV Area PHT 3.9 cm squared Mitral E to A Ratio 1.0 TR Peak Velocity 261.0 cm/s TR Peak Gradient 27.2 mmHg TV Peak E Velocity 132.0 cm/s PV Peak Velocity 95.0 cm/s FINDINGS Left Ventricle Normal left ventricular size, systolic function and wall thickness, with no regional wall motion abnormalities. Left ventricular ejection fraction is estimated at 60 %. Grade I/IV diastolic dysfunction (abnormal relaxation filling pattern), normal to mildly elevated filling pressures. Right Ventricle The right ventricle is normal in size and function. Right Atrium The right atrium is normal in size. Left Atrium Mildly increased left atrial size. Mitral Valve Moderately thickened mitral valve. Mild mitral annular calcification. No mitral valve stenosis. Mild mitral valve regurgitation. Aortic Valve Mild aortic valve calcification. No aortic valve stenosis. Trace aortic valve regurgitation. Tricuspid Valve Structurally normal tricuspid valve without significant stenosis or regurgitation. Pulmonary artery systolic pressure is normal. Pulmonic Valve Structurally normal pulmonic valve without significant stenosis. There is no pulmonic regurgitation. Pericardium Normal pericardium without effusion. Aorta Normal ascending aorta dimension. IVC The inferior vena cava appears normal. CONCLUSIONS Normal left ventricular size, systolic function and wall thickness, with no regional wall motion abnormalities. Left ventricular ejection fraction is estimated at 60 %. Grade I/IV diastolic dysfunction (abnormal relaxation filling pattern), normal to mildly elevated filling pressures. Moderately thickened mitral valve. Mild mitral annular calcification. No mitral valve stenosis. Mild mitral valve regurgitation. Mild aortic valve calcification. No aortic valve stenosis. Trace aortic valve regurgitation. There is no pericardial effusion. Right atrial pressure is around 5 mm of mercury. Prema Martinez MD (Electronically Signed) Final Date: 27 November 2024 15:28 S
== END 2024-11-23 06:00 | disposition home or self-care (01) ==
LOC: RAD 05:59
PROVIDERS: PCP Family Medicine; Visit Provider Internal Medicine Cardiovascular Disease
DX: R06.02 Shortness of breath (principal); R93.1 Abnormal findings on diagnostic imaging of heart and coronary circulation; I51.7 Cardiomegaly; I34.81 Nonrheumatic mitral (valve) annulus calcification; I34.0 Nonrheumatic mitral (valve) insufficiency; I35.8 Other nonrheumatic aortic valve disorders
CPT/HCPCS: 93306

== ENCOUNTER 2024-11-23 13:14 | Emergency (ER) | payer OTHER, SELFPAY ==
[2024-11-23 13:17] VITALS: BP 145/82; PULSE 74; RESP 16; O2SAT 96
--- NOTE | 2024-11-23 13:19 | ECG_ITS ---
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 Measurements Intervals [place] Rate: 70 P: 36 [place]: 161 QRS: -23 QRSD: 100 T: 28 QT: 379 QTc: 411 Interpretive Statements SINUS RHYTHM LOW QRS VOLTAGE IN PRECORDIAL LEADS [QRS DEFLECTION < 1.0 mV IN CHEST LEADS] INCOMPLETE RIGHT BUNDLE BRANCH BLOCK [90+ ms QRS DURATION, TERMINAL R IN V1/V2, 40+ ms S IN I/aVL/V4/V5/V6] POSSIBLE ANTERIOR MYOCARDIAL INFARCTION , PROBABLY OLD [30 ms Q WAVE IN V3/V4, OR R < 0.2 mV IN V4] Compared to ECG 10/24/2024 15:41:15 Low QRS voltage now present Incomplete right bundle-branch block now present Myocardial infarct finding now present Left-axis deviation no longer present Electronically Signed On 11-23-2024 17:31:24 CDT by Nate Scruggs M.D. [email or web address]
--- NOTE | 2024-11-23 13:20 | XR_ITS ---
WS: [id number] Portable AP upright chest, 11/23/2024 Clinical Data: chest pain Comparison: Two-view chest, 09/16/2018 Findings: No nodules, masses or effusions are seen. The heart is normal. The pulmonary vascularity is not increased. No pneumonia or pneumothorax is seen. The aortic arch and descending thoracic aorta show tortuosity. Monitor leads are on the chest wall. XR/XR chest 1V portable [id number] Impression: Atherosclerosis.
--- NOTE | 2024-11-23 13:35 | CT_ITS ---
WS: [id number] CT CHEST ANGIOGRAPHY WITH REFORMATS HISTORY: shortness of breath TECHNIQUE: Contiguous axial images are obtained through the chest during arterial injection of intravenous contrast. Images are reconstructed to evaluate the pulmonary arteries. MIP imaging also reviewed. All CT scans at [facility] use at least one of these dose optimization techniques: automated exposure control; mA and/or kV adjustment per patient size (includes targeted exams where dose is matched to clinical indication); or iterative reconstruction. CONTRAST: Omnipaque 350; 100 mL IV. DLP: 441.94 mGy.cm COMPARISON: None available. Acute opacification of the pulmonary arteries. No pulmonary embolism identified. Normal size aorta. No RIGHT heart strain. Normal size heart. No mediastinal or hilar adenopathy. There is a small paratracheal lymph node which is not pathologic. Mild hazy attenuation throughout both lungs and mild dependent changes. No consolidation or mass. No pneumothorax. Small hiatal hernia. Cholelithiasis. No adjacent inflammation. Common bile duct does not appear dilated. No destructive bone lesions. CT/CT angio chest PE protcl [id number] IMPRESSION: 1. No pulmonary embolism. 2. No RIGHT heart strain. 3. Very mild hazy attenuation throughout the lungs may be due to to mild edema . No consolidations or pneumonia. 4. Cholelithiasis without acute cholecystitis.
[2024-11-23 13:36] VITALS: BP 141/80; PULSE 75; RESP 18; O2SAT 99
--- NOTE | 2024-11-23 13:36 | W.ED.CHESTPA ---
HPI - Chest Pain General: Chief Complaint: Chest Pain Stated Complaint: chest pain and back pain Time Seen by Provider: 11/23/24 13:15 History of Present Illness: Patient is a 64-year-old female presenting with a chief complaint of shortness of breath. She states that this has been ongoing before she had her cardiac catheterization on November 07, 2024. She believes that the antiplatelet medication she was prescribed may be the cause of her shortness of breath. She states that since yesterday, she has also had pain in her right thoracic back where her bra strap is. She denies fever, cough, hemoptysis or syncope. She has not had any lower extremity swelling. She states that she is feeling increasingly short of breath and lightheaded with exertion. She does not have a history of DVT/PE. On November 07, 2024, patient had a stent placed in the circumflex and had angioplasty to an OM vessel. Related Data Home Medications ?Medication ?Instructions ?Recorded ?Confirmed propranolol 10 mg tablet 10 mg PO BID 10/24/24 11/23/24 aspirin 81 mg tablet 81 mg PO QAM 11/04/24 11/23/24 amlodipine 2.5 mg tablet 7.5 mg PO QPM 11/23/24 11/23/24 cholecalciferol (vitamin D3) 125 125 mcg PO DAILY 11/23/24 11/23/24 mcg (5,000 unit) tablet (Vitamin D3) hydrochlorothiazide 12.5 mg tablet 12.5 mg PO QAM 11/23/24 11/23/24 rosuvastatin 20 mg tablet 20 mg PO DAILY 11/23/24 11/23/24 ticagrelor 90 mg tablet (Brilinta) 90 mg PO BID 11/23/24 11/23/24 Previous Rx's ?Medication ?Instructions ?Recorded ondansetron 4 mg disintegrating 4 mg PO Q8H PRN nausea and 03/10/24 tablet vomiting #10 tabs CPAP #1 ea 08/02/24 CPAP supplies, mask, tubing, etc #1 ea 08/02/24 cyclobenzaprine 10 mg tablet 10 mg PO TID PRN muscle spasm #30 11/09/24 tabs Allergies Allergy/AdvReac Type Severity Reaction Status Date / Time clopidogrel Allergy rash Verified 11/18/24 11:02 prasugrel Allergy Unknown Verified 11/23/24 13:02 PFSH ED PFSH: Medical History (Updated 11/23/24 @ 15:06 by Francesca Villarreal MD) Hyperextension injury of finger of right hand Peripheral edema COVID-19 No pertinent past medical history neghx: dm,thyroid,dvt/pe PCP: [facility] Surgical History (Updated 11/18/24 @ 13:06 by Josué Corona MD) H/O breast biopsy (~2013) Atypical ductal hyperplasia of the left breast. Hx of section (~1986) Hx of dilation and curettage x4-- she had 3 D&Cs done for miscarriages and one done for postmenopausal bleeding in 2011. Per patient at time of D&C in 2011 no malignancy or hyperplasia was identified. Hx of tubal ligation (~1992) through abdomen Hx of tonsillectomy At age 8 History of bunionectomy Right Family History Sister Thyroid disease Mother Heart disease Hypertension Hypercholesteremia Dementia Denies family history of Colon cancer Ovarian cancer Diabetes Breast cancer Uterine cancer Stroke Social History Smoking and tobacco/nicotine status: never used tobacco/nicotine Physical Exam Narrative: EXAM NARRATIVE: Vital signs were reviewed. Patient is alert and oriented. Patient is breathing comfortably, no increased WOB or accessory muscle use. SpO2 is above 95% on RA. Lungs are clear bilaterally, no rhonchi or wheezing noted. No crackles in the bases. No hypotension or tachycardia. Patient has a soft, nondistended nontender abdomen. Patient is moving all extremities, no deformity or gross injury. There is no lower extremity edema or asymmetry. Course Vital Signs: Vital signs: Vital Signs Pulse Rate 66 11/23/24 13:52 Respiratory Rate 16 11/23/24 13:52 Blood Pressure 141/80 11/23/24 13:52 Pulse Oximetry 97 11/23/24 13:52 Oxygen Delivery Me thod Room Air 11/23/24 13:52 MDM - Chest Pain Medical Decision Making 64-year-old female with a significant history for cardiac disease presents with a chief complaint of shortness of breath, now new thoracic back pain, atraumatic. Differential diagnosis includes, but is not limited to, ACS, myocarditis, pericarditis, pneumonia, viral upper respiratory infection, PE, GERD, other. On initial exam, patient is hemodynamically stable nontoxic appearing. EKG was personally reviewed and interpreted and shows normal sinus rhythm with a heart rate of 70, left axis deviation,, mildly prolonged QRS, no prolongation of QTc, no STEMI. Given recent procedure, exertional shortness of breath and lightheadedness, patient was evaluated with CBC, BMP, troponin, BNP, EKG, chest x-ray, UA and CT PE. Patient has a normal white blood cell count and is not anemic. There are no actionable electrolyte abnormalities. Patient has a normal troponin and only very mildly elevated BNP. At this point my concern for heart failure is low. UA is negative for infection. CT PE does not show PE, evidence of right heart strain. Her shortness of breath that is subjective could be due to recent medications however at this time, she is appropriate for further outpatient workup. Patient was counseled on supportive care at home, given return precautions and discharged in a stable condition. Lab Data 11/23/24 13:29 11/23/24 13:29 Radiology Impressions Chest X-Ray 11/23/24 13:20 Impression: Atherosclerosis. Chest CTA 11/23/24 13:35 IMPRESSION: 1. No pulmonary embolism. 2. No RIGHT heart strain. 3. Very mild hazy attenuation throughout the lungs may be due to to mild edema. No consolidations or pneumonia. 4. Cholelithiasis without acute cholecystitis. Laboratory Results WBC 8.44 10^3/uL (3.29-11.43) 11/23/24 13: RBC 4.38 10^6/uL (3.85-5.65) 11/23/24 13:29 Hgb 12.60 g/dL (11.27-16.99) 11/23/24 13:29 Hct 38.7 % (36-47) 11/23/24 13:29 MCV 88.4 fl (85-98) 11/23/24 13:29 MCH 28.8 pg (27-33) 11/23/24 13:29 MCHC 32.6 g/dL (30-55) 11/23/24 13:29 RDW 12.7 % (12.1-15.1) 11/23/24 13:29 Plt Count 298 10^3/cmm (157-399) 11/23/24 13:29 MPV 10.1 fL (7.4-10.4) 11/23/24 13:29 Neut % (Auto) 65.6 % 11/23/24 13:29 Lymph % (Auto) 25.1 % 11/23/24 13:29 [place] % (Auto) 5.0 % 11/23/24 13:29 Eos % (Auto) 3.3 % 11/23/24 13:29 Baso % (Auto) 0.6 % 11/23/24 13:29 Neut # (Auto) 5.54 10^3/uL (1.8-7.7) 11/23/24 13:29 Lymph # (Auto) 2.1 10^3/uL (0.8-4.8) 11/23/24 13:29 [place] # (Auto) 0.4 10^3/uL (0.2-0.9) 11/23/24 13:29 Eos # (Auto) 0.3 10^3/uL (0.0-0.8) 11/23/24 13:29 Baso # (Auto) 0.1 10^3/uL (0.0-0.1) 11/23/24 13:29 Nucleated RBC % (auto) 0 % 11/23/24 13:29 Nucleated RBCs # 0.0 /100WBC 11/23/24 13:29 Sodium 138 mmol/L (136-145) 11/23/24 13:29 Potassium 3.6 mmol/L (3.5-5.1) 11/23/24 13:29 Chloride 101 mmol/L (98-107) 11/23/24 13:29 Carbon Dioxide 22 mmol/L (22-29) 11/23/24 13:29 Anion Gap 18.6 (5-19) 11/23/24 13:29 BUN 17 mg/dL (8-23) 11/23/24 13:29 Creatinine 0.9 mg/dL (0.5-0.9) 11/23/24 13:29 GFR Calculation 63.4 mL/min (90-130) L 11/23/24 13:29 Glucose 164 mg/dL (65-115) H 11/23/24 13:29 Calculated Osmolality 291 mOsm/kg (285-295) 11/23/24 13:29 Calcium 9.2 mg/dL (8.5-10.5) 11/23/24 13:29 Total Bilirubin 0.3 mg/dL (0.15-1.2) 11/23/24 13:29 AST 19 U/L (0-32) 11/23/24 13:29 ALT 14 U/L (0-33) 11/23/24 13:29 Alkaline Phosphatase 94 U/L (35-105) 11/23/24 13:29 Troponin T Baseline 7 ng/L (0-10) 11/23/24 13:29 NT-Pro-B Natriuret Pep 170 pg/mL (0-125) H 11/23/24 13:29 Total Protein 7.4 g/dL (6.6-8.7) 11/23/24 13:29 Albumin 4.4 g/dL (3.5-5.2) 11/23/24 13:29 Globulin 3.0 g/dL (1.3-4.6) 11/23/24 13:29 Urine Color Yellow (Yellow) 11/23/24 14:13 Urine Appearance Clear (CLEAR) 11/23/24 14:13 Urine pH 5.0 (5-7) 11/23/24 14:13 Ur Specific [place] 1.023 (1.005-1.030) 11/23/24 14:13 Urine Protein Negative (Negative) 11/23/24 14:13 Urine Glucose (UA) Negative (Normal) 11/23/24 14:13 Urine Ketones Negative (Negative) 11/23/24 14:13 Urine Blood Negative (Negative) 11/23/24 14:13 Urine Nitrate Negative (Negative) 11/23/24 14:13 Urine Bilirubin Negative (Negative) 11/23/24 14:13 Urine Urobilinogen 1.0 mg/dL (Negative) 11/23/24 14:13 Ur Leukocyte Esterase Negative (Negative) 11/23/24 14:13 Urine RBC 0-2 /hpf (0-2) 11/23/24 14:13 Urine WBC 0-5 /hpf (0-5) 11/23/24 14:13 Ur Squamous Epith Cells 0-5 /hpf (0-5) 11/23/24 14:13 Amorphous Sediment Not Reportable 11/23/24 14:13 Urine Bacteria None seen /hpf (NONE) 11/23/24 14:13 Hyaline Casts 0.81 /lpf 11/23/24 14:13 All radiology interpretation(s) finalized by discharge Discharge Plan Discharge Patient Disposition: Home Clinical Impression: Exertional shortness of breath Condition: Stable Prescriptions: No Action (DME) CPAP See Rx Instructions .Route .MEDSUPPLY Qty: 1 0RF Rx Instructions: As directed - Settings 6-16 cm H2O (DME) CPAP supplies, mask, tubing, etc See Rx Instructions .Route .MEDSUPPLY Qty: 1 0RF Rx Instructions: As directed propranolol 10 mg tablet 10 mg PO BID ondansetron 4 mg tablet,disintegrating 4 mg PO Q8H PRN (Reason: nausea and vomiting) Qty: 10 3RF cyclobenzaprine 10 mg tablet 10 mg PO TID PRN (Reason: muscle spasm) Qty: 30 0RF ticagrelor [Brilinta] 90 mg tablet 90 mg PO BID Patient Comments: due to patient reactions - medication has been changed back to Brillinta rosuvastatin 20 mg tablet 20 mg PO DAILY cholecalciferol (vitamin D3) [Vitamin D3] 125 mcg (5,000 unit) Tablet 125 mcg PO DAILY amlodipine 2.5 mg tablet 7.5 mg PO QPM hydrochlorothiazide 12.5 mg tablet 12.5 mg PO QAM aspirin 81 mg Tablet 81 mg PO QAM Discharge Orders: Discharge ED (Routine); Ordered 11/23/24 Ordered By: Francesca Villarreal Referrals: Jose Ramon Hernandez MD [Primary Care Provider, Family Practice] Patient Instructions: Shortness of Breath (ED), Opioid Safety, Pain Management, Patient Portal & Precious Instructions Activity Restrictions/Additional Instructions: Please continue to monitor your condition closely at home. If your condition worsens or additional concerns arise, please return promptly to the emergency department for reassessment. Follow up with your primary care doctor in one week. Your doctor may further consider evaluation by a assembling machine operator. Additionally, follow-up with your paper roller regarding any medication changes. Print Language: Welsh Coding Level of Care Code ED Cage Unloader for Moustapha Stock
[2024-11-23 13:42] LABS: Hematocrit 38.7 % (36-47); Hemoglobin 12.60 g/dL (11.27-16.99); Mean Corpuscular HGB Conc 32.6 g/dL (30-55); Mean Corpuscular Hemoglobin 28.8 pg (27-33); Mean Corpuscular Volume 88.4 fl (85-98); Nucleated Red Blood Cells % 0 %; Platelet Count 298 10^3/cmm (157-399); Red Blood Count 4.38 10^6/uL (3.85-5.65); White Blood Count 8.44 10^3/uL (3.29-11.43)
[2024-11-23 13:52] VITALS: BP 141/80; PULSE 66; RESP 16; O2SAT 97
[2024-11-23 13:54] LABS: Troponin(5th) Baseline 7 ng/L (0-10)
[2024-11-23 14:26] LABS: Glucose Urine UA Negative (Normal); Nitrate Urine Negative (Negative); Specific Gravity, Urine 1.023 (1.005-1.030)
[2024-11-23 14:28] LABS: Alanine Aminotransferase 14 U/L (0-33); Albumin Level 4.4 g/dL (3.5-5.2); Alkaline Phosphatase 94 U/L (35-105); Aspartate Amino Transferase 19 U/L (0-32); Blood Urea Nitrogen 17 mg/dL (8-23); Calcium 9.2 mg/dL (8.5-10.5); Carbon Dioxide 22 mmol/L (22-29); Chloride 101 mmol/L (98-107); Creatinine Clr Calc Pharmacy 75.9442; Globulin 3.0 g/dL (1.3-4.6); Glucose 164 mg/dL (65-115); NT Pro B Type Natriuretic Pept 170 pg/mL (0-125); Osmolality Calculated 291 mOsm/kg (285-295); Sodium 138 mmol/L (136-145); Total Protein 7.4 g/dL (6.6-8.7)
[2024-11-23 14:30] LABS: Anion Gap 18.6 (5-19); Potassium 3.6 mmol/L (3.5-5.1)
[2024-11-23 14:31] LABS: Add Urine Microscopic? YES
--- NOTE | 2024-11-23 14:42 | PC.PHAR ---
Pt started Plavix, which caused allergic whelps. Med changed to Brillinta which caused shortness of breath. Med changed to Prasugrel 10mg which is caused her to be in ER. Pt will stop Prasugrel and restart Brillinta tomorrow 11/24/24.
[2024-11-23] MEDS: iohexol 350 mg/mL 500 mL Btl (per mL) IV (14:47)
[2024-11-23 15:21] VITALS: BP 129/68; PULSE 67; RESP 16; O2SAT 98
== END 2024-11-23 15:22 | disposition home or self-care (01) ==
PROVIDERS: Emergency Provider Emergency Medicine; PCP Family Medicine
DX: R06.02 Shortness of breath (principal); I10 Essential (primary) hypertension; Z86.16 Personal history of COVID-19
CPT/HCPCS: 71045; 71275; 80053; 81001; 83880; 84484; 85025; 93005; 99285

== ENCOUNTER 2025-03-09 12:46 | Outpatient (CLI) | payer OTHER, SELFPAY ==
--- NOTE | 2025-03-09 12:52 | MM_ITS ---
WS: [id number] BILATERAL SCREENING DIGITAL TOMOSYNTHESIS MAMMOGRAM WITH CAD HISTORY: ANNUAL SCREEN COMPARISON: 03/07/2024, 03/02/2023, 02/09/2021 Bilateral CC and MLO views with tomosynthesis and synthetic mammography submitted. Computer aided detection analyzed. Breast composition: There are scattered areas of fibroglandular density. No suspicious masses, microcalcifications or architectural distortion. 5 mm asymmetry in the superior LEFT breast seen best on the MLO projection has been present since 02/11/2021. There are numerous additional calcifications within each breast. MM/MM scr tomosynthesis [id number] IMPRESSION: BI-RADS: 2 - Benign. FOLLOW UP: 1 Year Follow-up
--- NOTE | 2025-03-09 13:30 | XR_ITS ---
WS: [id number] DEXA (DUAL ENERGY X-RAY ABSORPTIOMETRY) Bone mineral density was performed using a [employer] machine. HISTORY: Z78.0 - Asymptomatic menopausal state COMPARISON: None available. Lumbar spine BMD (L1-L4): 1.058 g/cm2 T score: -1.0 Z score: -0.6 Total hip BMD: Left: 1.033 g/cm2. T score: 0.2 Z score: 0.5 Right: 1.048 g/cm2. T score: 0.3 Z score: 0.7 10 year probability of a major osteoporotic fracture is 6.5%. XR/XR DEXA axial skeleton* [id number] IMPRESSION: NORMAL BONE MINERAL DENSITY based upon the WHO classification for females.
== END 2025-03-09 12:47 | disposition home or self-care (01) ==
LOC: RAD 12:47
PROVIDERS: PCP Family Medicine; Visit Provider Nurse Practitioner Women's Health
DX: Z12.31 Encounter for screening mammogram for malignant neoplasm of breast (principal); Z13.820 Encounter for screening for osteoporosis; Z78.0 Asymptomatic menopausal state; R92.323 Mammographic fibroglandular density, bilateral breasts; N64.89 Other specified disorders of breast
CPT/HCPCS: 77063; 77067; 77080